=== PATIENT | female | born 1955 | race African-American/Black ===

== ENCOUNTER 2021-12-10 12:49 | Inpatient (IN) | payer MEDICARE, BC ==
[~2021-12-10] VITALS: Ht 165.1 cm; Wt 53.8 kg
[~2021-12-10 12:49] MED LIST: INSULIN
[2021-12-10] MEDS ORDERED: AMLO5TAB88 PO (13:25)
[2021-12-10] MEDS ORDERED: TACR30OI5 TP (13:25)
[2021-12-10] MEDS ORDERED: CYCL30DR OP (13:25)
[2021-12-10] MEDS ORDERED: LEVO50TA8 PO (13:25)
[2021-12-10] MEDS ORDERED: ASPI-1497 PO (13:25)
[2021-12-10] MEDS ORDERED: MYCO180T3 PO (13:25)
[2021-12-10] MEDS ORDERED: PRED2.5T4 PO (13:25)
[2021-12-10] MEDS ORDERED: LATA2.5D14 OP (13:25)
[2021-12-10] MEDS ORDERED: STATIN (13:25)
[2021-12-10] MEDS ORDERED: ACETAMINOPHEN WITH CODEINE 300/30MG TABLET PO STA (15:15)
[2021-12-10 16:03] LABS: HEMATOCRIT. 30.7 % (36.0-48.0); HEMOGLOBIN. 10.1 g/dL (12.0-16.0); MEAN CORPUSCULAR HEMOGLOBIN 26.5 pg (28.0-32.0); MEAN CORPUSCULAR VOLUME 80.5 fL (81.0-99.0); MEAN PLATELET VOLUME 6.9 fl (7.4-10.4); PLATELET 367 x1000/uL (130-400); RED BLOOD CELL COUNT 3.82 mill/uL (4.2-5.4); RED CELL DISTRIBUTION WIDTH 16.2 % (11.6-14.6)
[2021-12-10 16:12] LABS: CHLORIDE 92 mEq/L (98-107); PROTHROMBIN TIME 10.8 sec (9.6-11.0)
[2021-12-10 16:52] LABS: CLARITY URINE CLEAR (CLEAR); COLOR URINE YELLOW (YELLOW); KETONES URINE TRACE (NEGATIVE); LEUKOCYTE ESTERASE URINE NEGATIVE (NEGATIVE); NITRITE URINE NEGATIVE (NEGATIVE); OCCULT BLOOD URINE TRACE (NEGATIVE); PROTEIN URINE NEGATIVE (NEGATIVE); SPECIFIC GRAVITY URINE 1.005 (1.005-1.030)
[2021-12-10 17:11] LABS: PLATELET ESTIMATE NORMAL
[2021-12-10] MEDS ORDERED: ACETAMINOPHEN 325MG TABLET PO PRN (19:00)
[2021-12-11 02:27] VITALS: BP 155/63
[2021-12-11] MEDS ORDERED: FOLI-43 PO (03:01)
[2021-12-11] MEDS ORDERED: CHOL400D7 PO (03:01)
[2021-12-11] MEDS ORDERED: LEVO88TA7 PO (03:01)
[2021-12-11] MEDS ORDERED: PRAV20TA57 PO (03:01)
[2021-12-11 04:00] VITALS: BP 144/93
[2021-12-11] MEDS ORDERED: METHYL SALICYLATE/MENTHOL CREAM 85GM TOP PRN (05:00)
[2021-12-11] MEDS ORDERED: HYDROCODONE/APAP 7.5/325MG 1 TAB TABLET PO PRN (05:00)
[2021-12-11] MEDS ORDERED: NALOXONE HCL 0.4MG/ML VIAL IV PRN (05:15)
[2021-12-11] MEDS: LEVOTHYROXINE SODIUM 88MCG TABLET PO SCH (07:40)
[2021-12-11 08:00] VITALS: BP 153/64
[2021-12-11] MEDS: FOLIC ACID 1MG TABLET PO SCH (09:00)
[2021-12-11] MEDS: AMLODIPINE 5MG TABLET PO SCH ×2 (09:00→21:50)
[2021-12-11] MEDS: ASPIRIN 81MG TABLET PO SCH (09:00)
[2021-12-11] MEDS ORDERED: MYCOPHENOLATE SODIUM 180 MG TABLET.DR PO SCH (09:00)
[2021-12-11] MEDS: CHOLECALCIFEROL (D3) 1000 UNIT TABLET PO SCH (09:00)
[2021-12-11] MEDS: PREDNISONE 5MG TABLET PO SCH (09:00)
[2021-12-11] MEDS ORDERED: TACROLIMUS 1MG CAPSULE PO SCH (09:30)
[2021-12-11 12:00] VITALS: BP 144/82
[2021-12-11 13:30] LABS: CHLORIDE 86 mEq/L (98-107)
[2021-12-11 13:42] LABS: HEMOGLOBIN. 9.7 g/dL (12.0-16.0); MEAN CORPUSCULAR HEMOGLOBIN 26.9 pg (28.0-32.0); MEAN CORPUSCULAR VOLUME 80.2 fL (81.0-99.0); MEAN PLATELET VOLUME 6.9 fl (7.4-10.4); PLATELET 362 x1000/uL (130-400); RED BLOOD CELL COUNT 3.62 mill/uL (4.2-5.4)
[2021-12-11 16:00] VITALS: BP 152/91
[2021-12-11] MEDS: SODIUM CHLORIDE 0.9% 1,000 ML IV SCH (17:36)
[2021-12-11 20:00] VITALS: BP 158/70
[2021-12-11] MEDS: TACROLIMUS 1MG CAPSULE PO SCH (23:42)
[2021-12-12] VITALS: BP_SYST 150; BP_DIAS 150; BP_DIAS 68
[2021-12-12] MEDS: SODIUM CHLORIDE 0.9% 1,000 ML IV SCH ×2 (01:26→12:59)
[2021-12-12 04:00] VITALS: BP 152/64
[2021-12-12] MEDS: LEVOTHYROXINE SODIUM 88MCG TABLET PO SCH (06:29)
[2021-12-12 06:38] LABS: HEMATOCRIT. 29.5 % (36.0-48.0); HEMOGLOBIN. 9.8 g/dL (12.0-16.0); MEAN CORPUSCULAR HEMOGLOBIN 26.7 pg (28.0-32.0); MEAN CORPUSCULAR VOLUME 80.1 fL (81.0-99.0); PLATELET 368 x1000/uL (130-400); RED BLOOD CELL COUNT 3.68 mill/uL (4.2-5.4); RED CELL DISTRIBUTION WIDTH 15.6 % (11.6-14.6)
[2021-12-12 06:58] LABS: CHLORIDE 98 mEq/L (98-107)
[2021-12-12 08:00] VITALS: BP 152/65
[2021-12-12 08:34] LABS: HDL CHOLESTEROL 92 mg/dL (40-59); LDL CHOLESTEROL 62 mg/dL (5-100); PHOSPHORUS 2.6 mg/dL (2.5-4.9)
[2021-12-12] MEDS: CHOLECALCIFEROL (D3) 1000 UNIT TABLET PO SCH (08:38)
[2021-12-12] MEDS: TACROLIMUS 1MG CAPSULE PO SCH (08:39)
[2021-12-12] MEDS: PREDNISONE 5MG TABLET PO SCH (08:39)
[2021-12-12] MEDS: FOLIC ACID 1MG TABLET PO SCH (08:39)
[2021-12-12] MEDS: AMLODIPINE 5MG TABLET PO SCH (08:40)
[2021-12-12] MEDS: ASPIRIN 81MG TABLET PO SCH (08:47)
[2021-12-12] MEDS ORDERED: MAGNESIUM 2 G PREMIX 50 ML IV NR (11:00)
[2021-12-12 12:00] VITALS: BP 140/63
[2021-12-12 14:40] LABS: PLATELET ESTIMATE NORMAL
[2021-12-12 16:00] VITALS: BP 160/69
[2021-12-12 17:05] VITALS: BP 160/69
[2021-12-12 20:55] LABS: PLATELET ESTIMATE NORMAL
== END 2021-12-12 18:45 | disposition home or self-care (01) | DRG 552 ==
LOC: ER 14:56 → 7WST 19:04 → ENRESERV 22:52 → 7WST 12-11 00:30
PROVIDERS: ADMIT Internal Medicine; ATTEND Internal Medicine
DX: M48.02 Spinal stenosis, cervical region (principal); Z94.0 Kidney transplant status; Z94.83 Pancreas transplant status; E87.1 Hypo-osmolality and hyponatremia; E44.0 Moderate protein-calorie malnutrition; J98.11 Atelectasis; Z68.1 Body mass index [BMI] 19.9 or less, adult; Z20.822 Contact with and (suspected) exposure to COVID-19; E03.9 Hypothyroidism, unspecified; M47.812 Spondylosis without myelopathy or radiculopathy, cervical region; E78.5 Hyperlipidemia, unspecified; D63.1 Anemia in chronic kidney disease; Z98.51 Tubal ligation status; Z87.898 Personal history of other specified conditions
CPT/HCPCS: 36415; 70490; 71046; 71250; 72141; 80048; 80053; 80061; 81003; 82533; 83036; 83605; 83735; 84100; 84145; 84443; 85025; 86140; 87070; 87426; 87430; 87804; 93005; 99285; C9803; J3475; J7030; J7507; J7512